=== PATIENT | male | born 1990 | race Caucasian/White ===

== ENCOUNTER 2020-08-17 13:23 | Emergency (ER) | payer SELFPAY ==
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
--- NOTE | ~2020-08-17 | CT_ITS ---
EXAMINATION: CT brain wo con INDICATION: Head injury COMPARISON: None TECHNIQUE: Standard unenhanced head CT. The dose-length product (DLP) was 464.01 mGy-cm. The mA was a djusted according to patient size. Iterative reconstruction technique was employed. FINDINGS: There is no intracranial hemorrhage, acute infarction, or abnormal mass lesion. The ventric les are normal. There is no abnormal mass effect or midline shift. The clayton-white matter differentiat ion is normal. The basal cisterns are patent. There is a right parietal scalp hematoma. The orbits ar e normal. There is a polyp or mucous retention cyst of the right maxillary sinus. There is mild mucos al thickening of the paranasal sinuses. IMPRESSION: 1. No acute intracranial abnormality. Reviewed, dictated and finalized at location A.
[2020-08-17 13:25] VITALS: BP 145/89; PULSE 119; RESP 20; TEMP 36.8; O2SAT 97
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
== END 2020-08-17 14:10 | disposition home or self-care (01) ==
PROVIDERS: Emergency Provider Emergency Medicine
DX: S00.03XA Contusion of scalp, initial encounter (principal); Y04.0XXA Assault by unarmed brawl or fight, initial encounter
CPT/HCPCS: 70450; 72125; 99283; 99284; L0150

== ENCOUNTER 2022-08-12 02:01 | Emergency (ER) | payer SELFPAY ==
[2022-08-12 02:04] VITALS: BP 140/72; PULSE 92; RESP 18; TEMP 36.8; O2SAT 100
--- NOTE | 2022-08-12 02:12 | ED.HA ---
HPI - Headache General Chief Complaint: Headache Stated Complaint: Migraine Source: patient and family Mode of arrival: ambulatory Limitations: no limitations History of Present Illness HPI Narrative: This is a 32-year-old male that presents with a migraine /is typical migraine headache with no nausea vomiting slight sensitive noise sensitive with no fever chills no neck pain no neck stiffness no chest pain or shortness of breath no abdominal pain. MD elicited complaint: migraine Onset (ago): hour(s) Onset description: gradually Location: frontal Severity: similar to previous episodes Quality & Timing: throbbing and progressively worsening Exacerbating factors: light and noise Relieving factors: nothing Related Data Allergies Allergy/AdvReac Type Severity Reaction Status Date / Time No Known Allergies Allergy Unverified 08/12/22 02:03 Review of Systems Review of Systems: All systems reviewed & are unremarkable except as noted in HPI and below PMFSH Past Medical History Medical History Migraine Exam Const: General: healthy appearing Nutritional Appearance: well nourished Orientation/consciousness: patient oriented x3 Limitations: no limitations HENMT: Head: normal to inspection Eyes: Conjunctivae: conjunctivae normal Neck: Neck: normal visual inspection Chest: Chest palpation & inspection: normal inspection of the chest Resp: Effort & Inspection: normal respiratory effort Cardio: Rate: regular rate Rhythm: regular rhythm GI: GI Palp: Yes Soft to palpation Auscultation: normal bowel sounds Skin: General skin exam: normal color Rashes: no rashes Wounds: no wounds Neuro: General: patient oriented x3 Cranial nerves: Yes Nystagmus not present Speech: normal speech Extrem: General: normal to inspection Psych: Mental Status: mental status grossly normal Affect: normal affect Attitude: cooperative Course Course Emergency Course: patient received IV fluids along with 30mg IV Toradol and 10mg IV Reglan and symptoms have improved. Vital Signs Vital signs: Vital Signs Temperature 36.8 C 08/12/22 02:04 Pulse Rate 92 08/12/22 02:04 Respiratory Rate 18 08/12/22 02:04 Blood Pressure 140/72 08/12/22 02:04 Pulse Oximetry 100 08/12/22 02:04 Oxygen Delivery Room Air 08/12/22 02:04 Temperature 36.8 C 08/12/22 02:04 Pulse Rate 92 08/12/22 02:04 Respiratory Rate 18 08/12/22 02:04 Blood Pressure 140/72 08/12/22 02:04 Pulse Oximetry 100 08/12/22 02:04 Oxygen Delivery Room Air 08/12/22 02:04 Critical Care Time Critical Care Time Critical Care Time: No Discharge Plan Discharge Clinical Impression: Migraine Patient Disposition: Home, Self-Care Condition: Stable Instructions: Antibiotic Form, Migraine Headache (ED) Additional Instructions: take medicine as prescribed and follow up with primary if symptoms persist or worsen. Prescriptions: New tramadol 50 mg tablet 50 mg PO Q6H PRN (Reason: pain) Qty: 14 0RF ondansetron 4 mg tablet,disintegrating 4 mg PO Q6H PRN (Reason: nausea and vomiting) Qty: 10 0RF Follow-up/Referrals: UNKNOWN,DOCTOR [Primary Care Provider] - Time of Disposition:
[2022-08-12] MEDS: SODIUM CHLORIDE 0.9% IV 1,000 ML 999 ML IV CONT (02:20)
[2022-08-12] MEDS: KETOROLAC 30 MG/ML VIAL (*BKC) IV PUSH (02:21)
[2022-08-12] MEDS: METOCLOPRAMIDE HCL INJ 10 MG/2 ML VIAL IV PUSH (02:21)
[2022-08-12 03:35] VITALS: BP 109/58; PULSE 92; RESP 18; O2SAT 96
== END 2022-08-12 03:36 | disposition home or self-care (01) ==
PROVIDERS: Emergency Provider Emergency Medicine
DX: G43.909 Migraine, unspecified, not intractable, without status migrainosus (principal)
CPT/HCPCS: 96361; 96374; 96375; 99284; J1885; J2765; J7030

== ENCOUNTER 2024-06-04 18:42 | Emergency (ER) | payer MEDICAID, SELFPAY ==
[2024-06-04 18:42] VITALS: BP 152/87; PULSE 62; RESP 16; TEMP 36; O2SAT 100
--- OUTSIDE RECORDS SUMMARY | 2024-06-04 18:44 | XMS_ITS | Encounter Summary ---
Author Organization [facility] Address [address] [place] [address] Care Team Providers Care Hris Coordinator Name Role Phone Jorje Tenorio MD Primary Care Provider [phone] None, Provider Primary Care Provider Unavaila ble Jorje Tenorio MD Unavailable [phone] Encounter Details Date Type Department Care Team (Late st Contact Info) Description 09/01/2018 Abstract SFL CONVERSION [address] [address] , Generic Conversion, Social History Tobacco Use Types Packs/Day Years Used Date Smoking Tobacco: Never Assessed Sex and Gender Information Value Date Recorded Sex Assigned at Not on file 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
--- OUTSIDE RECORDS SUMMARY | 2024-06-04 18:44 | XMS_ITS | Clinical Summary ---
Author Organization [facility] Address [address] [place] [address] Care Team Providers Care Toe Former Name Role Phone None, Provider Primary Care Provider Jorje Iyer MD Unavailable [phone] Allergies No known active allergies Medications * This document contains information received from the source organization and may not represent a complete record from that organization. HYDROcodone-acet aminophen (NORCO) 5-325 MG tabletIndication s:Acute Pain < 3 Day Supply Take 1 tablet by mouth every 8 (eight) hours as needed for Pain. 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 Gender Identity Not on file Sexual Orientation Not on file Last Filed Vital Signs Vital Sign Reading Time Taken Comments Blood Pressure 142/94 09/22/2023 9:10 AM CDT Pulse 77 09/22/2023 9:10 AM CDT Temperature 36.4 C (97.6 F) 09/22/2023 9:10 AM CDT Respiratory Rate 18 09/22/2023 9:10 AM CDT Oxygen Saturation 100% 09/22/2023 9:10 AM CDT Inhaled Oxygen Concentration - - Weight 97.4 kg (214 lb 12.8 oz) 09/22/2023 9:10 AM CDT Height 167.6 cm (5' 6 ) 09/22/2023 9:10 AM CDT Body Mass Index 34.67 09/22/2023 9:10 AM CDT Plan of Treatment Health Maintenance Due Date Last Done Comments Annual Physical 08/13/1991 Pneumococcal Vaccine: Pediatrics (0 to 5 Years) and At-Risk Patients (6 to 64 Years) (1 of 2 - PCV) 1994 Hepatitis C 2006 DTaP, Tdap and Td Vaccines (1 - Tdap) 08/13/2007 03/07/1990, 02/01/1989, 1988, Additional history exists Hepatitis B Vaccines (1 of 3 - 19+ 3-dose series) 08/13/2007 COVID-19 Vaccine ( - 2023-25 season) 2023 Influenza Adult (#1) 2023 HPV Vaccines Aged Out No longer eligi ble based on patient's age to complete this topic Meningococcal B Vaccine Aged Out No l onger eligible based on patient's age to complete this topic Meningococcal Vaccine Aged Out No koffi darian eligible based on patient's age to complete this topic RSV Immunizations Under 20 Months Aged Out No longer eligible based on patient's age to complete this topic Insurance [employer] Care Teams Toe Former Relationship Specialty Start Date End Date None, Provider, PCP - General 01/04/21 Jorje Tenorio MD [address] [place] [phone] FAMILY PRACTICE 01/04/21
--- NOTE | 2024-06-04 19:04 | PC.NURSE ---
REPORT TO DREA VELOZ, ERP IS AWARE OF PT
--- NOTE | 2024-06-04 19:07 | ED_ITS ---
HPI - Headache General Chief Complaint: Headache Stated Complaint: HEADACHE Time Seen by Provider: 06/04/24 19:07 Source: patient Mode of arrival: ambulatory Limitations: no limitations History of Present Illness HPI Narrative: 33 YEARS OLD WHITE MALE DROVE HIMSELF TO THE ED WITH SIGNIFICANT OTHER COMPLAINING OF MIGRAINE HEADACHE. STARTED EARLY TODAY. PATIENT IS TELLING ME THAT HE HAVE HISTORY OF MIGRAINE CLUSTER HEADACHE USUALLY GETS BETTER ON OXYGEN. PATIENT'S SIGNIFICANT OTHER TOLD ME THAT PATIENT HAD SEIZURE TODAY , WAS SHAKING, WITH STAFFING OF THE RIGHT UPPER EXTREMITY. PATIENT REMEMBER IT . IS TELLING ME THAT HE HAVE HISTORY OF SEIZURE, QUIT TAKING DILANTIN YEARS AGO BECAUSE MAKE HIM FEEL WEIRD, USUALLY GETS SEIZURE WHEN HE HAVE MIGRAINE HEADACHE. MAXIMUM ONCE A MONTH. PATIENT REPORTS HIS HEADACHE TODAY EXACTLY THE SAME BEFORE AND HE DECLINED ANY POSSIBILITY OF CT SCAN. IS TELLING ME THAT EVERY TIME HE GET CT SCAN FOR HEADACHE SHOWS NOTHING UNUSUAL. PATIENT WORKS IN THE [place]. HE DENIES ANY FEVER CHILLS OR VOMITING. Related Data Allergies Allergy/AdvReac Type Severity Reaction Status Date / Time No Known Allergies Allergy Unverified 06/04/24 18:51 Review of Systems Review of Systems: All systems reviewed & are unremarkable except as noted in HPI and below PMFSH Past Medical History Medical History Migraine Exam Narrative: GENERAL APPEARANCE: WELL-DEVELOPED, WELL-NOURISHED LOOKS IN PAIN COVERING HIS EYES WITH HIS CLOTHES SKIN: NORMAL COLOR HEAD: NORMOCEPHALIC, NONTRAUMATIC EYES: CLEAR CONJUNCTIVA ENT: OROPHARYNX NORMAL, EARS NORMAL, NOSE NORMAL NECK: SUPPLE, NONTENDER CHEST AND RESPIRATORY: AIRWAY PATENT, NO RESPIRATORY DISTRESS, NO ACCESSORY MUSCLE USE HEART: REGULAR RATE/RHYTHM ABDOMEN: SOFT, NONTENDER, NO ORGANOMEGALY, QUIET BOWEL SOUNDS VASCULAR: NORMAL PERIPHERAL PULSES, NORMAL CAPILLARY REFILL. MUSCULOSKELETAL: NORMAL RANGE OF MOTION, NONTENDER BACK NEUROLOGIC: ALERT AND ORIENTED ?3, PSS DELIVERY PROFESSIONAL IS NORMAL TESTED, NO GROSS MOTOR DEFICIT Course Vital Signs Vital signs: Vital Signs Temperature 36.0 C L 06/04/24 18:42 Pulse Rate 62 06/04/24 18:42 Respiratory Rate 16 06/04/24 18:42 Blood Pressure 152/87 H 06/04/24 18:42 Pulse Oximetry 100 06/04/24 18:42 Oxygen Delivery Room Air 06/04/24 18:42 Temperature 36.0 C L 06/04/24 18:42 Pulse Rate 62 06/04/24 18:42 Respiratory Rate 16 06/04/24 18:42 Blood Pressure 152/87 H 06/04/24 18:42 Pulse Oximetry 100 06/04/24 18:42 Oxygen Delivery Room Air 06/04/24 18:42 MDM - Headache MDM Narrative Medical decision making narrative: PATIENT PRESENTS WITH HEADACHE, QUESTIONABLE SEIZURE, VITAL SIGNS SHOWING BLOOD PRESSURE 152/87 OTHERWISE WITHIN NORMAL LIMIT PHYSICAL EXAMINATION SHOWING A PATIENT IN PAIN, RESTLESS, AWAKE ALERT ORIENTED X4 DIFFERENTIAL DIAGNOSIS INCLUDE MIGRAINE HEADACHE, CLUSTER HEADACHE, TENSION HEADACHE, SEIZURE-LIKE ACTIVITIES, NONCOMPLIANCE WITH ANTI SEIZURE MEDICATIONS PATIENT DECLINED CT SCAN OF THE HEAD PATIENT WAS NOT ABLE TO TAKE DILANTIN IV, 300 MG OF DILANTIN P.O. WAS GIVEN TO THE PATIENT PRIOR TO DISCHARGE, HE A PRESCRIPTION OF DILANTIN 100 MG T.I.D. WAS GIVEN TO THE PATIENT PRIOR TO DISCHARGE. THE PATIENT AND HIS FIANCEE RAYMOND HOYT WAS NOTIFIED THAT HE CANNOT DRIVE ANY MOTOR VAGAL OR MOTOR MACHINE FOR AT LEAST 6 MONTHS. AND HE NEED TO HAVE A PERMISSION FOR THE NEUROLOGIST TO RESUME DRIVING AGAIN. THE PATIENT AND HIS FIANCEE UNDERSTOOD THE POSSIBILITY OF RECURRENT SEIZURE WHILE DRIVING OR USING A MACHINE Differential Diagnosis Differential diagnosis: Likely other ( ABOVE) Critical Care Time Critical Care Time Critical Care Time: No Discharge Plan Discharge Clinical Impression: Headache, Seizure disorder, Non-compliance Patient Disposition: Home, Self-Care Condition: Improved Instructions: Acute Headache (ED), Recurrent Seizures in Adults (ED) Additional Instructions: RETURN IF SYMPTOMS ARE WORSENING , CALL YOUR FAMILY PHYSICIAN FOR APPOINTMENT, TAKE TYLENOL NEEDED FOR ACHES AND PAIN, CONTINUE HOME MEDICATIONS. YOU SHOULD NOT DRIVE A CAR OR ANY MOTOR VEHICLE OR MACHINE FOR AT LEAST 6 MONTHS AFTER THE LAST SEIZURE, AND HE HAVE TO TAKE A PERMISSION TO DRIVE AGAIN BY A NEUROLOGIST. Patient Language: Estonian Prescriptions: New phenytoin sodium extended [Dilantin Kapseal] 100 mg capsule 100 mg PO TID Qty: 90 0RF No Action tramadol 50 mg tablet 50 mg PO Q6H PRN (Reason: pain) Qty: 14 0RF ondansetron 4 mg tablet,disintegrating 4 mg PO Q6H PRN (Reason: nausea and vomiting) Qty: 10 0RF Follow-up/Referrals: Naseer,Oswaldo, MD [Physician] - 06/05/24 UNKNOWN,DOCTOR [Primary Care Provider] -
[2024-06-04 19:15] VITALS: O2SAT 100
[2024-06-04 19:17] VITALS: BP 148/90; O2SAT 99
--- OUTSIDE RECORDS SUMMARY | 2024-06-04 19:23 | XMS_ITS | Clinical Summary ---
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
--- OUTSIDE RECORDS SUMMARY | 2024-06-04 19:23 | XMS_ITS | Encounter Summary ---
Author Organization [facility] Address [address] [place] [address] Care Team Providers Care Aquaculture Worker Name Role Phone Jorje Tenorio MD Primary Care Provider [phone] None, Provider Primary Care Provider Unavaila ble Jorje Tenorio MD Unavailable [phone] Encounter Details Date Type Department Care Team (Late st Contact Info) Description 09/01/2018 Abstract SFL CONVERSION [address] [place] [address] , Generic Conversion, Social History Tobacco Use Types Packs/Day Years Used Date Smoking Tobacco: Never Assessed Sex and Gender Information Value Date Recorded Sex Assigned at Not on file 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
[2024-06-04] MEDS: LORazepam INJ (*CRX) 2 MG/ML VIAL 1 MG IV PUSH (19:58)
[2024-06-04] MEDS: KETOROLAC 30 MG/ML VIAL (*BKC) IV PUSH (20:00)
[2024-06-04 20:01] VITALS: BP 139/77
[2024-06-04] MEDS: METOCLOPRAMIDE HCL INJ 10 MG/2 ML VIAL IV PUSH (20:02)
[2024-06-04] MEDS: diphenhydrAMINE HCl INJ 50 MG/ML VIAL IV PUSH (20:05)
[2024-06-04] MEDS: PHENYTOIN SODIUM INJ (*BKC) 1,000 MG in SODIUM CHLORIDE 0.9% IV 100 ML 360 MG IVPB (20:06)
[2024-06-04] MEDS: SODIUM CHLORIDE 0.9% IV 1,000 ML 999 ML IV CONT (20:07)
[2024-06-04 20:17] VITALS: BP 129/77; O2SAT 100
[2024-06-04] MEDS: PHENYTOIN SODIUM 100 MG EXTENDED RELEASE CAP 300 MG PO (20:54)
[2024-06-04 21:01] VITALS: BP 139/90
== END 2024-06-04 22:04 | disposition home or self-care (01) ==
PROVIDERS: Emergency Provider Emergency Medicine
DX: R51.9 Headache, unspecified (principal); G40.909 Epilepsy, unspecified, not intractable, without status epilepticus; Z91.199 Patient's noncompliance with other medical treatment and regimen due to unspecified reason
CPT/HCPCS: 96361; 96365; 96375; 99284; A9270; J1165; J1200; J1885; J2060; J2765; J7030

== ENCOUNTER 2024-08-09 23:28 | Emergency (ER) | payer OTHER, SELFPAY ==
[2024-08-09 23:28] VITALS: BP 140/100; PULSE 128; RESP 38; TEMP 36.1; O2SAT 100
--- OUTSIDE RECORDS SUMMARY | 2024-08-09 23:32 | XMS_ITS | Clinical Summary ---
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 Gender Identity Not on file Sexual Orientation [...] Date Last Done Comments Annual Physical 08/13/1991 Hepatitis C 2006 DTaP, Tdap and Td Vaccines (1 - Tdap) 08/13/2007 03/07/1990, 02/01/1989, 1988, Additional history exists Hepatitis B Vaccines (1 of 3 - 19+ 3-dose series) 08/13/2007 Pneumococcal Vaccine: Pediatrics (0 to 5 Years) and At-Risk Patients (6 to 49 Years) (1 of 2 - PCV) 08/13/2007 COVID-19 Vaccine (1 - 2023-25 season) 2023 HPV Vaccines Aged Out No longer [...] Insurance [employer] Care Teams Avionics Shop Supervisor Relationship Specialty Start Date End Date None, Provider, PCP - General 01/04/21 Jorje Tenorio MD [address] [place] [phone] FAMILY PRACTICE 01/04/21
--- OUTSIDE RECORDS SUMMARY | 2024-08-09 23:32 | XMS_ITS | Encounter Summary ---
Author Organization [facility] Address [address] [place] [address] Care Team Providers Care Kidney Puller Name Role Phone Jroje Tenorio MD Primary Care Provider [phone] None, Provider Primary Care Provider Unavaila ble Jorje Tenorio MD Unavailable [phone] Encounter Details Date Type Department Care Team (Late st Contact Info) Description 09/01/2018 Abstract SFL CONVERSION [address] [place] [address] , Generic Conversion, Social History Tobacco Use Types Packs/Day Years Used Date Smoking Tobacco: Never Assessed Sex and Gender Information Value Date Recorded Sex Assigned at Not on file 

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
[2024-08-09 23:56] VITALS: BP 142/99; PULSE 101; RESP 34; O2SAT 100
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
== END 2024-08-10 00:38 ==
PROVIDERS: Emergency Provider Emergency Medicine; PCP Internal Medicine
DX: Z02.89 Encounter for other administrative examinations (principal)
CPT/HCPCS: 99281